=== PATIENT | female | born 1960 | race Caucasian/White ===

== ENCOUNTER → 2016-07-29 | Outpatient (CLI) | payer OTHER ==
--- NOTE | 2016-07-29 14:42 | CT ---
EXAMINATION TYPE: CT abdomen wo con DATE OF EXAM: 07/29/2016 12:16 PM COMPARISON: NONE HISTORY: 56-year-old female with ventral Incisional Hernia TECHNIQUE: Contiguous axial scanning of the abdomen without IV contrast. Coronal and sagittal reconst ructions performed. CT DLP: 606 mGycm Automated exposure control for dose reduction was used. FINDINGS: The heart is normal size without pericardial effusion. Lung bases clear without pleural effusion. There appears to be a hjfkw-[id number]-xyumepso size hiatal hernia with postsurgical changes of sleeve gastre ctomy. Noncontrast appearance liver shows a 1.1 cm vague round hypodensity segment 6 inferior right hepatic lobe inadequately characterized on this study. Cholecystectomy clips are present. There is a 2.5 cm lipid rich adrenal adenoma in the right adrenal gland and 1.3 cm lipid rich adrenal adenoma in the left adrenal gland. Suggestion of second 1.0 cm lipid rich left adrenal adenoma. Kidneys, spleen, pancreas show no gross abnormality by noncontrast CT. There is moderate to large stool within the left hemicolon. No dilated small bowel, free fluid, or free air. There is some type of colonic anastomotic staple stephie e in the right mid abdomen probably ileocolonic. No mesenteric or retroperitoneal lymphadenopathy. There is a moderate sized right paramedian mid abdominal ventral wall hernia containing omental fat. The hernia sac measures 7.0 cm wide by 6.7 cm craniocaudal. The abdominal wall defect measures 4.1 cm wide. Bones: Degenerative changes lower lumbar spine. No osseous destructive process. IMPRESSION: 1. MODERATE SIZED RIGHT PARAMEDIAN MID ABDOMINAL WALL HERNIA MEASURING 7.0 X 6.7 CM AND THE ABDOMINAL WALL DEFECT MEASURING 4.1 CM WIDE. THE HERNIA SAC CONTAINS OMENTAL FAT. 2. MODERATE TO LARGE STOOL IN THE LEFT HEMICOLON. PRIOR SURGERY INVOLVING THE RIGHT COLON. 3. STATUS POST SLEEVE GASTRECTOMY WITH A SMALL TO MODERATE-SIZED HIATAL HERNIA. 4. BILATERAL LIPID RICH ADRENAL ADENOMAS MEASURING UP TO 2.5 CM. 5. AN INDETERMINATE 1.1 CM HYPODENSE LESION INFERIOR RIGHT LIVER LOBE. PROBABLE CYST. CONSIDER 6 KAROL H FOLLOW-UP ULTRASOUND TO ASSESS FOR ANY ENLARGING LESION.
== END | disposition home or self-care (01) ==
LOC: RADCTMAIN 11:18
PROVIDERS: ATTEND Family Medicine
DX: K43.9 Ventral hernia without obstruction or gangrene (principal); K44.9 Diaphragmatic hernia without obstruction or gangrene; D35.02 Benign neoplasm of left adrenal gland; D35.01 Benign neoplasm of right adrenal gland; Z98.84 Bariatric surgery status
CPT/HCPCS: 74150

== ENCOUNTER → 2016-09-21 | Outpatient (CLI) | payer OTHER ==
[2016-09-21 13:16] LABS: ALT 37 U/L (9-52); AST 22 U/L (14-36); Alkaline Phosphatase 100 U/L (38-126); Anion Gap 13 mmol/L; Blood Urea Nitrogen 10 mg/dL (7-17); Calcium 9.9 mg/dL (8.4-10.2); Carbon Dioxide 27 mmol/L (22-30); Chloride 104 mmol/L (98-107); Cholesterol 238 mg/dL (<200); Glucose 109 mg/dL (74-99); HDL Cholesterol 66 mg/dL (40-60); Iron 108 ug/dL (37-170); Non-African American GFR(MDRD) >60 (>60 ml/min/1.73 sqM); Phosphorous 4.4 mg/dL (2.5-4.5); Potassium 4.5 mmol/L (3.5-5.1); Sodium 144 mmol/L (137-145); Total Bilirubin 0.3 mg/dL (0.2-1.3); Total Protein 7.1 g/dL (6.3-8.2); Triglycerides 216 mg/dL (<150)
[2016-09-21 13:20] LABS: Partial Thromboplastin Time 26.3 sec (22.0-30.0); Prothrombin Time 10.6 sec (9.0-12.0)
[2016-09-21 13:28] LABS: % Iron Saturation 35.4 % (20-50); Prealbumin 28 mg/dL (18-36); Total Iron Binding Capacity 305 ug/dL (265-497)
[2016-09-21 13:34] LABS: CHCM 33.6; HCT 39.7 % (34.0-46.0); HDW 2.34; HGB 13.7 gm/dL (11.4-16.0); MCH 31.9 pg (25.0-35.0); MCHC 34.4 g/dL (31.0-37.0); MCV 92.6 fL (80.0-100.0); Mean Platelet Volume 7.1; RBC 4.29 m/uL (3.80-5.40); RDW 12.4 % (11.5-15.5); WBC 4.8 k/uL (3.8-10.6)
[2016-09-21 14:22] LABS: Vitamin B12 253 pg/mL (239-931)
[2016-09-21 20:38] LABS: Hemoglobin A1C 5.3 % (4.2-6.1)
[2016-09-24 11:20] LABS: Selenium 129 mcg/L (63-160)
== END | disposition home or self-care (01) ==
LOC: LABWHC1 12:26
PROVIDERS: ATTEND Surgery Plastic and Reconstructive Surgery
DX: E21.1 Secondary hyperparathyroidism, not elsewhere classified (principal); T56.894A Toxic effect of other metals, undetermined, initial encounter; E89.1 Postprocedural hypoinsulinemia; D50.8 Other iron deficiency anemias; E44.0 Moderate protein-calorie malnutrition; E55.9 Vitamin D deficiency, unspecified; K76.9 Liver disease, unspecified
CPT/HCPCS: 36415; 80053; 80061; 82306; 82525; 82607; 82728; 82746; 83036; 83540; 83550; 83735; 83970; 84100; 84134; 84255; 84425; 84443; 84590; 84630; 85027; 85610; 85730

== ENCOUNTER → 2016-10-13 | Outpatient (CLI) | payer OTHER ==
--- NOTE | 2016-10-13 12:52 | P.STRESS ---
- Stress Test Note Stress Test Results/Findings: Exam Performed: stress test Exam Date: 10/13/16 Reason for Exam: CP Height: 5 ft 5 in Weight: 90.718 kg Protocol: JENNIFER Stage: 3 Duration of Exercise: 7:00 Resting Heart Rate: 101 Resting Blood Pressure: 131/91 Maximum Achieved Heart Rate: 163 Maximum Achieved Blood Pressure: 172/89 85% PMHR: 141 100% PMHR: 166 METS: 8.5 Technologist Comment: Stress Test Results/Findings: Resting EKG shows a normal sinus rhythm with a normal TN interval and QRS duration and normal ST-T waves. No ST segment depression suggestive ischemia is noted. Patient did not complain of any anginal pain during the test. No dysrhythmias were noted. Final impression. The stress EKG is not suggestive ischemi Patient did not complain of any anginal pain during the test. No dysrhythmias were noted.
--- NOTE | 2016-10-13 16:50 | EST ---
Stress Test Results/Findings: Exam Performed: stress test Exam Date: 10/13/16 Reason for Exam: CP Height: 5 ft 5 in Weight: 90.718 kg Protocol: JENNIFER Stage: 3 Duration of Exercise: 7:00 Resting Heart Rate: 101 Resting Blood Pressure: 131/91 Maximum Achieved Heart Rate: 163 Maximum Achieved Blood Pressure: 172/89 85% PMHR: 141 100% PMHR: 166 METS: 8.5 Technologist Comment: Stress Test Results/Findings: Resting EKG shows a normal sinus rhythm with a normal GA interval and QRS duration and normal ST-T waves. No ST segment depression suggestive ischemia is noted. Patient did not complain of any anginal pain during the test. No dysrhythmias were noted. Final impression. The stress EKG is not suggestive ischemi Patient did not complain of any anginal pain during the test. No dysrhythmias were noted. MTDD
== END | disposition home or self-care (01) ==
LOC: RADNMMAIN 10:39
PROVIDERS: ATTEND Family Medicine
DX: R00.2 Palpitations (principal)
CPT/HCPCS: 93017

== ENCOUNTER 2016-10-19 08:45 | Day surgery (SDC) | payer OTHER ==
[2016-10-17 14:11] VITALS: BMI 34.2
--- NOTE | 2016-10-19 08:36 | P.GSHP ---
History of Present Illness H&P Date: 10/19/16 CHIEF COMPLAINT: GERD HISTORY OF PRESENT ILLNESS: The patient is a 56-year-old female who presents reports gastroesophageal reflux disease. Upper endoscopy was offered for further evaluation and management. PAST MEDICAL HISTORY: Please see list. PAST SURGICAL HISTORY: Please see list. MEDICATIONS: Please see list. ALLERGIES: Please see list. SOCIAL HISTORY: No illicit drug use FAMILY HISTORY: No reports of Crohn disease or ulcerative colitis. REVIEW OF ORGAN SYSTEMS: CONSTITUTIONAL: No reports of fevers or chills. GI: Denies any blood in stools or constipation. PHYSICAL EXAM: VITAL SIGNS: Stable GENERAL: Well-developed and pleasant in no acute distress. HEENT: No scleral icterus. Extraocular movements grossly intact. Moist buccal mucosa. NECK: Supple without lymphadenopathy. CHEST: Unlabored respirations. Equal bilateral excursions. CARDIOVASCULAR: Regular rate and rhythm. Distal 2+ pulses. ABDOMEN: Soft, nondistended. MUSCULOSKELETAL: No clubbing, cyanosis, or edema. ASSESSMENT: 1. Gastroesophageal reflux disease PLAN: 1. Recommend proceeding with an upper endoscopy with possible dilatation. Past Medical History Additional Past Medical History / Comment(s): hx of intestinal problems since . chronic constipation. hiatal hernia History of Any Multi-Drug Resistant Organisms: None Reported Past Surgical History: Adenoidectomy, Appendectomy, Bariatric Surgery, Bowel Resection, Cholecystectomy, Tonsillectomy Additional Past Surgical History / Comment(s): colonoscopy. egd. GASTRIC SLEEVE Past Anesthesia/Blood Transfusion Reactions: Motion Sickness Smoking Status: Former smoker - Past Family History Father Family Medical History: Cancer Sister(s) Family Medical History: Cancer Medications and Allergies Home Medications Medication Instructions Recorded Confirmed Type ALPRAZolam [Xanax] 0.25 mg PO BID PRN 10/17/16 10/17/16 History Dicyclomine [Bentyl] 10 mg PO TID PRN 10/17/16 10/17/16 History Doxylamine Succinate [Unisom] 25 mg PO HS 10/17/16 10/17/16 History Lubiprostone [Amitiza] 24 mcg PO HS 10/17/16 10/17/16 History traMADol HCL [Ultram] 150 mg PO DAILY PRN 10/17/16 10/17/16 History Allergies Allergy/AdvReac Type Severity Reaction Status Date / Time morphine AdvReac Nausea & Verified 10/17/16 14:07 Vomiting
[~2016-10-19 08:45] MED LIST: LACTATED RINGERS 1,000 ML IV SCH; LIDOCAINE 1% 20 ML VIAL (10MG/ML) FOR IV START INTRADERMA PRN
[2016-10-19 10:03] VITALS: RESP 16; TEMP 97.1
[2016-10-19] MEDS ORDERED: LIDOCAINE 1% INJ 10MG/ML (20 ML MDV) ONE (10:38)
[2016-10-19] MEDS ORDERED: GLYCOPYRROLATE 0.2 MG/ML 2 ML VIAL ONE (10:38)
[2016-10-19] MEDS ORDERED: PROPOFOL 10 MG/ML 20 ML VIAL IV ONE (10:38)
--- NOTE | 2016-10-19 11:02 | P.PCN ---
Date of Procedure: 10/19/16 Preoperative Diagnosis: Postoperative Diagnosis: Procedure(s) Performed: Implants: Indications for Procedure: Operative Findings: Description of Procedure: PREOPERATIVE DIAGNOSIS: Status post sleeve gastrectomy. Gastroesophageal reflux disease. Epigastric abdominal pain. POSTOPERATIVE DIAGNOSIS: Status post sleeve gastrectomy. Gastroesophageal reflux disease. Epigastric abdominal pain. Diaphragmatic hiatal hernia without obstruction. Chronic superficial gastritis. OPERATION: Esophagogastroduodenoscopy with cold forceps biopsies along the antrum. SURGEON: Angélica Shrestha MD ANESTHESIA: MAC. INDICATIONS: The patient is a 56-year-old female who presents with a history of sleeve gastrectomy with abdominal pain. She is over 8 years out from her bariatric procedure. Benefits and risks of the procedure were described. Informed consent was obtained. DESCRIPTION: The patient was brought into the endoscopy suite and laid in the left lateral decubitus position. An Olympus gastroscope was passed along the posterior oropharynx down to the distal esophagus where the squamocolumnar junction was at 35 centimeters from the incisors remarkable for chronic erosive esophagitis, LA grade A without ulceration. The stomach was entered where she had a 3-cm hiatal hernia with a diaphragmatic hiatus found at 38 cm. She also had rotation of her sleeve with proximal dilation. She had acute narrowing along the angularis incisura. The scope had to be rotated to enter the antrum. The sleeve reservoir allowed retroflexion of the scope to view the lower esophageal valve. Chronic gastritis albeit mild was found along the antrum with cold biopsies obtained. The first through third portion of the duodenum was examined and unremarkable. The stomach was desufflated. The patient tolerated the procedure well. FINDINGS: No acute ulceration found along her sleeve. Corkscrewing sleeve gastrectomy. Squamocolumnar junction at 35 cm from the incisors. Diaphragmatic hiatus at 38 cm. Gastric reservoir with prior history of sleeve gastrectomy allowing easy retroflexion of the gastroscope to view the lower esophageal valve. Hiatal hernia 3 cm, fixed. LA grade A erosive esophagitis. No active duodenitis. Chronic gastritis. RECOMMENDATIONS: Upper endoscopy as needed. May benefit from antireflux operation. Continue with current therapy. Plan - Discharge Summary New Discharge Prescriptions: No Action traMADol HCL [Ultram] 150 mg PO DAILY PRN PRN Reason: Pain Doxylamine Succinate [Unisom] 25 mg PO HS ALPRAZolam [Xanax] 0.25 mg PO BID PRN PRN Reason: Anxiety Lubiprostone [Amitiza] 24 mcg PO HS Dicyclomine [Bentyl] 10 mg PO TID PRN PRN Reason: Spasms Discharge Medication List ALPRAZolam [Xanax] 0.25 mg PO BID PRN 10/17/16 [History] Dicyclomine [Bentyl] 10 mg PO TID PRN 10/17/16 [History] Doxylamine Succinate [Unisom] 25 mg PO HS 10/17/16 [History] Lubiprostone [Amitiza] 24 mcg PO HS 10/17/16 [History] traMADol HCL [Ultram] 150 mg PO DAILY PRN 10/17/16 [History] Follow up Appointment(s)/Referral(s): Angélica Shrestha MD [STAFF PHYSICIAN] - 11/01/16 Patient Instructions/Handouts: Hiatal Hernia (GEN) Discharge Disposition: HOME SELF-CARE
[2016-10-19 11:17] VITALS: BP 131/81; PULSE 77
== END 2016-10-19 11:50 | disposition home or self-care (01) ==
LOC: ORWHC2ENDO 08:45
PROVIDERS: ATTEND Surgery Plastic and Reconstructive Surgery
DX: K29.50 Unspecified chronic gastritis without bleeding (principal); K44.9 Diaphragmatic hernia without obstruction or gangrene; K59.09 Other constipation; Z87.891 Personal history of nicotine dependence; Z98.84 Bariatric surgery status; E66.01 Morbid (severe) obesity due to excess calories; Z68.34 Body mass index [BMI] 34.0-34.9, adult; Z79.899 Other long term (current) drug therapy; Z88.5 Allergy status to narcotic agent
CPT/HCPCS: 43239; 88305; 88342

== ENCOUNTER → 2019-09-18 | Outpatient (CLI) | payer OTHER ==
--- NOTE | 2019-09-19 07:41 | CT ---
EXAMINATION TYPE: CT abdomen pelvis w con DATE OF EXAM: 09/18/2019 COMPARISON: 07/29/2016 HISTORY: Abdominal pain. CT DLP: 954.1 mGycm CONTRAST: CT scan of the abdomen and pelvis is performed with Oral Contrast and with IV Contrast, patient injec easton with 100 mL of Isovue 300. FINDINGS: LUNG BASES-: No visible nodule. No infiltrate. Small fixed hiatal hernia noted. LIVER/GB: The gallbladder is surgically absent. 1 cm lesion posterior segment right hepatic lobe is nonspecific and could reflect a small cyst or hemangioma. Biliary tree is of normal caliber. PANCREAS: No inflammation. No distinct mass. SPLEEN: No splenic enlargement. No lesion seen. ADRENALS: No nodule. Adrenal glandular thickening compatible with hyperplasia and/or underlying rashawn omatous change. KIDNEYS/BLADDER: No hydronephrosis. No nephrolithiasis. No distinct renal mass. Urinary bladder g rossly unremarkable. BOWEL: Normal appendix. Postsurgical changes of gastric sleeve. Normal bowel caliber. No inflammati on. GENITAL ORGANS: No gross abnormality. LYMPH NODES: No greater than 1cm abdominal or pelvic lymph nodes are appreciated. AORTA: No significant abnormality. OSSEOUS STRUCTURES: No significant abnormality is seen. OTHER: Fat-containing ventral hernia noted to the right of midline. IMPRESSION: 1. No evidence for diverticulitis. No acute intra-abdominal process seen. 2. Fat-containing ventral hernia. 3. Nonspecific hepatic lesion appears unchanged relative to prior examination.
== END | disposition home or self-care (01) ==
LOC: RADCTMAIN 15:48
PROVIDERS: ATTEND Surgery Plastic and Reconstructive Surgery
DX: K43.9 Ventral hernia without obstruction or gangrene (principal); K76.89 Other specified diseases of liver
CPT/HCPCS: 74177; Q9967 ×2

== ENCOUNTER 2019-11-25 07:32 | Day surgery (SDC) | payer OTHER ==
[2019-11-21 08:33] VITALS: BMI 31.2
--- NOTE | 2019-11-25 04:43 | P.GSHP ---
History of Present Illness H&P Date: 11/25/19 CHIEF COMPLAINT: Incisional hernia. HISTORY OF PRESENT ILLNESS: The patient is a 59-year-old female who presents with a history of swelling along the mid abdomen. Findings are consistent with incisional hernia. Now she presents for further evaluation and management. PAST MEDICAL HISTORY: Please see list. PAST SURGICAL HISTORY: Please see list. MEDICATIONS: Please see list. ALLERGIES: Please see list. SOCIAL HISTORY: No illicit drug use FAMILY HISTORY: No reports of Crohn disease or ulcerative colitis. REVIEW OF ORGAN SYSTEMS: CONSTITUTIONAL: No reports of fevers or chills. PHYSICAL EXAM: VITAL SIGNS: Stable GENERAL: Well-developed pleasant female in no acute distress. HEENT: No scleral icterus. Extraocular movements grossly intact. Moist buccal mucosa. NECK: Supple without lymphadenopathy. CHEST: Unlabored respirations. Equal bilateral excursions. CARDIOVASCULAR: Regular rate and rhythm. Distal 2+ pulses. ABDOMEN: Soft, nondistended. Tender along the mid abdomen. MUSCULOSKELETAL: No clubbing, cyanosis, or edema. ASSESSMENT: 1. Incisional ventral hernia. PLAN: 1. Recommend proceeding with robotic ventral hernia repair with mesh. 2. Benefits and risks of surgical intervention was discussed including possibility of open technique. 3. DVT prophylaxis. 4. Antibiotic prophylaxis. Past Medical History Additional Past Medical History / Comment(s): states hx of elevated heart rate, states "abdominal adhesions" History of Any Multi-Drug Resistant Organisms: None Reported Past Surgical History: Appendectomy, Bariatric Surgery, Bowel Resection, Cholecystectomy, Hysterectomy, Tonsillectomy Additional Past Surgical History / Comment(s): hx of gastric sleeve Past Anesthesia/Blood Transfusion Reactions: No Reported Reaction Smoking Status: Current every day smoker - Past Family History Mother Family Medical History: Cancer Additional Family Medical History / Comment(s): skin Father Family Medical History: Cancer Additional Family Medical History / Comment(s): skin Medications and Allergies Home Medications Medication Instructions Recorded Confirmed Type ALPRAZolam [Xanax] 0.25 mg PO BID PRN 10/17/16 11/21/19 History Acetaminophen Tab [Tylenol] 650 mg PO Q4H PRN 11/21/19 11/21/19 History Metoprolol Tartrate [Lopressor] 12.5 mg PO BID 11/21/19 11/21/19 History Sertraline [Zoloft] 25 mg PO DAILY 11/21/19 11/21/19 History Allergies Allergy/AdvReac Type Severity Reaction Status Date / Time morphine AdvReac Nausea & Verified 11/21/19 08:26 Vomiting
[~2019-11-25 07:32] MED LIST changes: +ACETAMINOPHEN TAB 500 MG TAB PO STA; +DEXAMETHASONE SOD PHOSPHATE 10 MG/ML 1 ML VIAL IV ONE; +GABAPENTIN 300 MG CAP PO STA; +HEPARIN SODIUM,PORCINE 5,000 UNIT/ML 1 ML VIAL SQ ONE; +KETOROLAC 15 MG/ML 1 ML VIAL IVP PRN; -LACTATED RINGERS 1,000 ML IV SCH; -LIDOCAINE 1% 20 ML VIAL (10MG/ML) FOR IV START INTRADERMA PRN; +ONDANSETRON 4 MG/2 ML VIAL IVP ONE; +SCOPOLAMINE 1.5MG/72HR PATCH TRANSDERM STA
[2019-11-25] MEDS: LACTATED RINGERS 1,000 ML IV SCH ×2 (08:11→09:34)
[2019-11-25] MEDS ORDERED: LIDOCAINE 1% (10MG/ML) FOR IV START INTRADERMA ONE (08:11)
[2019-11-25] MEDS ORDERED: fentaNYL (PF) 50 MCG/ML 2 ML AMP IV ONE (08:46)
[2019-11-25] MEDS ORDERED: MIDAZOLAM 2 MG/2 ML VIAL IV ONE (08:46)
--- NOTE | 2019-11-25 09:12 | P.ANPRN ---
Procedure Note - Anesthesia - Nerve Block Performed Bilateral Rectus Abdominis Single Time Out Performed: Yes Date of Procedure: 11/25/19 Procedure Start Time: 08:46 Procedure Stop Time: 08:58 Location of Patient: PreOp Indication: Requested by Surgeon Specifically requested for management of pain by DrUmm: Angélica Shrestha Sedation Type: Sedate with meaningful contact maintained Preparation: Sterile Prep Position: Supine Needle Types: Pajunk Needle Gauge: 21 Ultrasound used to visualize needle placement: Yes Ultrasound used to observe medication spread: Yes Injectate: 0.5% Ropivacaine (see comment for volume) (15 ml per trish plus dexamethasone 4 mg) Blood Aspirated: No Pain Paresthesia on Injection Noted: No Resistance on Injection: Normal Image Stored and Saved: Yes Events: Uneventful and Well Tolerated
[2019-11-25] MEDS ORDERED: ROPIVACAINE 5 MG/ML 30 ML VIAL ONE (09:30)
[2019-11-25] MEDS ORDERED: DEXAMETHASONE SOD PHOSPHATE 4 MG/ML 1 ML VIAL ONE (09:30)
[2019-11-25] MEDS ORDERED: GLYCOPYRROLATE 0.2 MG/ML 2 ML VIAL ONE (09:30)
[2019-11-25] MEDS ORDERED: fentaNYL (PF) 50 MCG/ML 2 ML AMP ONE (09:30)
[2019-11-25] MEDS ORDERED: NEOSTIGMINE 1 MG/ML 10 ML VIAL ONE (09:30)
[2019-11-25] MEDS ORDERED: SUCCINYLCHOLINE CHLORIDE 100 MG/5 ML SYR IV ONE (09:30)
[2019-11-25] MEDS ORDERED: ROCURONIUM BROMIDE 10 MG/ML 5 ML VIAL IV ONE (09:30)
[2019-11-25] MEDS ORDERED: PROPOFOL 10 MG/ML 20 ML VIAL IV ONE (09:30)
[2019-11-25] MEDS ORDERED: LIDOCAINE 1% INJ 10MG/ML (20 ML MDV) ONE (09:30)
[2019-11-25] MEDS ORDERED: LIDOCAINE 1%-EPI 1:100,000 20 ML VIAL SQ ONE (09:58)
[2019-11-25] MEDS ORDERED: LACTATED RINGERS 1,000 ML IV ONE (10:46)
[2019-11-25 12:09] VITALS: TEMP 97.6
[2019-11-25] MEDS: HYDROmorphone 0.5 MG/0.5 ML SYRINGE IVP PRN ×4 (12:14→12:35)
--- NOTE | 2019-11-25 12:38 | P.OP ---
Date of Procedure: 11/25/19 Description of Procedure: SURGEON: ANGÉLICA SHRESTHA MD PREOPERATIVE DIAGNOSES: 1. Incisional hernia, upper abdomen 2. Morbid obesity due to excess calories, BMI 31.5 3. Status post gastric bypass 4. Status post colectomy 5. History of peritoneal dictation 6. Generalized anxiety disorder 7. Depressive disorder 8. Generalized abdominal pain POSTOPERATIVE DIAGNOSES: 1. Incisional hernia, upper abdomen, 4 cm 2. Morbid obesity due to excess calories, BMI 31.5 3. Status post gastric bypass 4. Status post colectomy 5. History of peritoneal dictation 6. Generalized anxiety disorder 7. Depressive disorder 8. Severe intra-abdominal adhesions with intraloop adhesions 9. Generalized abdominal pain OPERATION: 1. Robotic-assisted da Jacqueline Xi laparoscopic extensive lysis of adhesions over 1.5 hours 2. Robotic-assisted da Jacqueline Xi laparoscopic repair of 4 cm x 5 cm incisional hernia without mesh Anesthesia: GETA, local, abdominal wall block Estimated Blood Loss (ml): 5 Pathology: none sent Condition: stable Disposition: same day COMPLICATIONS: None. Operative Findings: 1. Severe intra-abdominal adhesions including intraloop adhesions requiring extensive lysis of adhesions over 1.5 hrs. 2. Fascial defect 4 x 5 cm epigastrium oversewn using #1 VLOC, nonabsorbable 3. Due to the severe adhesions, mesh repair avoided 4. Evidence of right hemicolectomy 5. Highly redundant hepatic flexure 6. High redundant sigmoid colon 7. Dense retroperitoneal adhesive band involving the common channel to right lower quadrant light, intraloop adhesions 8. Retrocolic, retrogastric gastric bypass INDICATIONS: The patient is a 59-year-old female who presents with persistent generalized abdominal pain, history of gastric bypass including incisional hernia of the epigastrium from multiple abdominal surgeries. Surgical intervention with laparoscopic versus robotic and open techniques were reviewed. Placement of mesh was also reviewed. Benefits and risks were thoroughly described. Informed consent was obtained. DESCRIPTION OF PROCEDURE: The patient was brought into the operating room and laid in supine position. After general induction, the abdomen had been prepped and draped in standard sterile fashion. Ioban draping was also placed. Prior to incision, a timeout protocol was confirmed with surgical team regarding the patient's name including procedures to be performed. The robot was primed prior to the procedure. Initial incision was made with a #11 blade along the left upper quadrant. A 0 degree 5 mm laparoscopic trocar entry was performed. Diagnostic laparoscopy demonstrated moderate peritoneal adhesions involving upper abdomen including right upper quadrant as well as defect of the epigastrium from prior multiple abdominal surgeries. Three robotic 8-mm ports were placed along the left lateral abdominal wall as the 5-mm port of the left upper quadrant was exchanged. A separate 12 mm trochar was placed on the right upper quadrant for placement of sutures. Placements of the ports were 15 cm from the target anatomy and approximately 10 cm apart. The da Jacqueline Xi robot was previously primed, prepped and draped then docked along the left side of the patient. I then sat at the robot Da Jacqueline Xi console where working arms of the robot in cluding Bovie cautery connected to robotic scissors, needle driver merchandiser, vessel sealer and graspers were exchanged by the project administrative assistant. She had very dense adhesions of the epigastrium and right upper quadrant involving the greater omentum and transverse colon addressed with a combination of sharp and blunt dissection. Complete lysis of adhesions occurred for 1.5 hrs including investigating the small bowel from the ileocolic anastomosis and dividing intraloop adhesions causing an intermittent functional bowel obstruction. The fascial defect of 4 x 5 cm of the upper abdomen was identified. The hernia defect was oversewn using nonabsorbable #1 VLOC with fascial imbrication x 4 to close and reinforce the defect. With her pre-existing severe abdominal adhesions, mesh placement was avoided. Rest of the investigation of the abdomen demonstrated evidence of a right hemicolectomy with highly redundant hepatic flexure including sigmoid colon. Dense retroperitoneal adhesive band involving the common channel to right lower quadrant light, intraloop adhesions were taken down. A retrocolic, retrogastric gastric bypass configuration was confirmed. Endoscopic images were obtained. All instruments and pneumoperitoneum were evacuated from the abdominal cavity. The da Jacqueline Xi robot was undocked from the patient. I re-scrubbed into the case for closure of incisions. The incisions were reapproximated using 4-0 Monocryl in an interrupted subcuticular fashion. Liquid glue was applied to the skin after cleansing the skin with normal saline and dilute hydrogen peroxide. An abdominal binder was placed. At the end of the procedure, needle, sponge, and instrument count had been verified correct by regional vice president surgical sales. The patient was taken to the postanesthesia care unit in stable condition. Plan - Discharge Summary Discharge Rx Participant: Yes New Discharge Prescriptions: New Acetaminophen Tab [Tylenol Tab] 1,000 mg PO Q6HR PRN #30 tablet PRN Reason: Pain Naproxen [Naprosyn] 250 mg PO TID PRN #30 tab PRN Reason: Pain Continue ALPRAZolam [Xanax] 0.25 mg PO BID PRN PRN Reason: Anxiety Sertraline [Zoloft] 25 mg PO DAILY Metoprolol Tartrate [Lopressor] 12.5 mg PO BID Discontinued Acetaminophen Tab [Tylenol] 650 mg PO Q4H PRN PRN Reason: Pain Discharge Medication List ALPRAZolam [Xanax] 0.25 mg PO BID PRN 10/17/16 [History] Metoprolol Tartrate [Lopressor] 12.5 mg PO BID 11/21/19 [History] Sertraline [Zoloft] 25 mg PO DAILY 11/21/19 [History] Acetaminophen Tab [Tylenol Tab] 1,000 mg PO Q6HR PRN #30 tablet 11/25/19 [Rx] Naproxen [Naprosyn] 250 mg PO TID PRN #30 tab 11/25/19 [Rx] Follow up Appointment(s)/Referral(s): Angélica Shrestha MD [STAFF PHYSICIAN] - 11/26/19 Patient Instructions/Handouts: Laparoscopic Herniorrhaphy (DC), Abdominal Binder (DC), *[facility] - Managing Your Pain After Surgery Without Opioids Activity/Diet/Wound Care/Special Instructions: Wear abdominal binder at all times No lifting over 4 pounds in 4 weeks until December 24. July shower. No bath tub soaks for two weeks until Dec 08. Diet as tolerated. No driving while on narcotics. Use Tylenol and ibuprofen/Aleve scheduled for the next 24-48 hours for best pain relief. Use ice along incisions for the today to prevent swelling. Discharge Disposition: HOME SELF-CARE
[2019-11-25] MEDS ORDERED: MEPERIDINE 50 MG/ML SYRINGE IVP ONE (12:54)
[2019-11-25 13:48] VITALS: PULSE 63
[2019-11-25 14:15] VITALS: BP 102/63; RESP 20
[2019-11-25] MEDS ORDERED: ACETAMINOPHEN TAB 500 MG TAB PO ONE ×2 (14:15→14:16)
[2019-11-25] MEDS ORDERED: ACETAMINOPHEN TAB 500 MG TAB ONE (14:18)
== END 2019-11-25 14:47 | disposition home or self-care (01) ==
LOC: OR 07:32
PROVIDERS: ATTEND Surgery Plastic and Reconstructive Surgery
DX: K43.2 Incisional hernia without obstruction or gangrene (principal); K66.0 Peritoneal adhesions (postprocedural) (postinfection); Q43.8 Other specified congenital malformations of intestine; E66.01 Morbid (severe) obesity due to excess calories; F32.9 Major depressive disorder, single episode, unspecified; F41.1 Generalized anxiety disorder; F17.200 Nicotine dependence, unspecified, uncomplicated; Z88.5 Allergy status to narcotic agent; Z86.79 Personal history of other diseases of the circulatory system; Z90.49 Acquired absence of other specified parts of digestive tract; Z98.84 Bariatric surgery status; Z90.710 Acquired absence of both cervix and uterus; Z90.89 Acquired absence of other organs; Z79.899 Other long term (current) drug therapy; Z68.31 Body mass index [BMI] 31.0-31.9, adult; Z80.8 Family history of malignant neoplasm of other organs or systems
CPT/HCPCS: 49329; 49654; S2900; 64488

== ENCOUNTER → 2020-01-15 | Outpatient (CLI) | payer OTHER ==
[2020-01-15 13:34] VITALS: BP 121/71; PULSE 78; RESP 16; TEMP 98.2; BMI 32.9
--- NOTE | 2020-01-15 14:00 | P.PN ---
Subjective Progress Note Date: 01/15/20 DATE OF SERVICE: 01/15/2020 REASON FOR CONSULTATION: Morbid obesity HISTORY OF PRESENT ILLNESS: Katheryn Calderon is a 59-year-old female with past history of sleeve gastrectomy with complications. She comes in with epigastric pain. She is smoking. She had a sleeve gastrectomy done by Dr Rod. Her highest was 255 pounds. Her lowest weight was 162 pounds. She gained 20 pound in 3 to 4 months. She comes in with gastroesophageal reflux disease. She is seeking correction of her reflux disease. At height of 5 feet 5 inches, her ideal body weight is 149 pounds. Her highest weight is 255 pounds, BMI 42.5. She comes in 198 pounds. Her body mass index is 32.9. She is 49 pounds overweight. PAST MEDICAL HISTORY: 1. Morbid obesity due to excess calories 2. Body mass index, 42.5 initial 3. Hypertensive heart disease 4. Depressive disorder 5. Anxiety disorder 6. Chronic pain syndrome PAST SURGICAL HISTORY: 1. Appendectomy 2. Sleeve gastrectomy 3. Right hemicolectomy 4. Cholecystectomy 5. Hysterectomy 6. Tonsillectomy 7. Ventral hernia repair HOME MEDICATIONS: Home Medications Medication Instructions Recorded Confirmed yMetoprolol Tartrate [Lopressor] 12.5 mg PO BID 11/21/19 03/20/20 ALPRAZolam [Xanax] 0.5 mg PO DAILY PRN 01/27/20 03/20/20 Cyanocobalamin [Vitamin B-12] 500 mcg PO DAILY 01/27/20 03/20/20 DULoxetine HCL [Cymbalta] 60 mg PO DAILY 01/27/20 03/20/20 Etodolac [Lodine] 200 mg PO BID 01/27/20 03/20/20 Turmeric Root Extract [Turmeric] 500 mg PO BID 01/27/20 03/20/20 Vitamin D3 5,000 units PO DAILY 01/27/20 03/20/20 ALLERGIES: Allergies Allergy/AdvReac Type Severity Reaction Status Date / Time gabapentin AdvReac Chest Verified 03/20/20 15:28 Pain,joint pain morphine AdvReac Nausea & Verified 03/20/20 15:28 Vomiting SOCIAL HISTORY: Past tobacco use. FAMILY HISTORY: No family history of ulcerative colitis disease or Crohn's disease. Family history of morbid obesity. No lupus in the family. No reports of stomach or esophageal cancer. REVIEW OF ORGAN SYSTEMS: CONSTITUTIONAL: At height of 5 feet 5 inches, her ideal body weight is 149 pounds. Her highest weight is 255 pounds, BMI 42.5. She comes in 198 pounds. Her body mass index is 32.9. She is 49 pounds overweight. HEENT: Denies any active troubles with vision or hearing. ENDOCRINE: No diabetes. No hypothyroidism. CARDIOVASCULAR: Denies past reports of palpitations or heart attacks or chest pain. RESPIRATORY: Denies daytime somnolence. Denies asthma. GASTROINTESTINAL: Denies any bright red blood per rectum. No diarrhea. No constipation. MUSCULOSKELETAL: Has lower back pain and joint pain. Has osteoarthritis of the knees. NEURO: No headaches. No seizure disorders. PSYCH: Has depression. No suicidal ideation. Has anxiety. RHEUMATOLOGIC: No lupus. No rheumatoid arthritis. HEMATOLOGIC: Denies any abnormal bleeding or bruising. No personal history of DVTs. SKIN: No rash. No skin cancer. PHYSICAL EXAM: VITAL SIGNS: Height 5 foot 5 inches, weight 198 pounds. BMI 32.9 Vital Signs Temp 98.2 F 01/15/20 13:31 Pulse 78 01/15/20 13:31 Resp 16 01/15/20 13:31 BP 121/71 01/15/20 13:31 Pulse Ox GENERAL: Well-developed in no acute distress. HEENT: No scleral icterus. Extraocular movements grossly intact. Hears conversational speech. No nasal drainage. NECK: Supple without lymphadenopathy. CHEST: Nonlabored respirations with equal bilateral excursions. CARDIOVASCULAR: Regular rate and regular rhythm. Distal 2+ pulses. ABDOMEN: Obese, soft, nontender, nondistended. MUSCULOSKELETAL: No clubbing, cyanosis. NEURO: No focal or lateralizing signs. Cranial nerves 2 through 12 grossly within normal limits. PSYCH: Appropriate affect. Alert and oriented to person, place and time. SKIN: Good skin turgor. Well perfused. ASSESSMENT: 1. Morbid obesity due to excess calories 2. Body mass index, 42.5 initial 3. Hypertensive heart disease 4. Depressive disorder 5. Anxiety disorder 6. Chronic pain syndrome 7. Tobacco abuse 8. Dietary surveillance PLAN: 1. She comes in with epigastric pain. Recommend CT abdomen and pelvis for new- onset abdominal pain. 2. Strict tobacco cessation and counseling advised. Objective - Vital Signs Vital signs: Vital Signs Temp 98.2 F 01/15/20 13:31 Pulse 78 01/15/20 13:31 Resp 16 01/15/20 13:31 BP 121/71 01/15/20 13:31 Pulse Ox Intake & Output 01/14/20 01/15/20 01/15/20 18:59 06:59 18:59 Weight 89.811 kg
== END | disposition home or self-care (01) ==
LOC: BARWHC3 13:00
PROVIDERS: ATTEND Surgery Plastic and Reconstructive Surgery
DX: Z48.815 Encounter for surgical aftercare following surgery on the digestive system (principal); E66.01 Morbid (severe) obesity due to excess calories; I11.9 Hypertensive heart disease without heart failure; F41.8 Other specified anxiety disorders; G89.4 Chronic pain syndrome; Z87.891 Personal history of nicotine dependence; Z68.41 Body mass index [BMI] 40.0-44.9, adult; Z71.3 Dietary counseling and surveillance; Z98.84 Bariatric surgery status; Z88.5 Allergy status to narcotic agent; Z88.8 Allergy status to other drugs, medicaments and biological substances; Z79.899 Other long term (current) drug therapy
CPT/HCPCS: 99211

== ENCOUNTER → 2020-01-23 | Outpatient (CLI) | payer OTHER ==
--- NOTE | 2020-01-24 09:50 | CT ---
EXAMINATION TYPE: CT abdomen pelvis w con DATE OF EXAM: 01/23/2020 COMPARISON: CT 09/18/2019 HISTORY: Generalized abdominal pain post abdominal surgery to remove adhesions in 2019. CT DLP: 1348 mGycm Automated exposure control for dose reduction was used. TECHNIQUE: Helical acquisition of images from the lung bases through the pelvis have been completed. CONTRAST: Performed without Oral Contrast and with IV Contrast, patient injected with 100ml mL of Isovue 300. FINDINGS: There is a hiatal hernia present. Postop changes are noted status post gastric sleeve. Vent ral hernia repair has been performed, some local scar or inflammatory changes present. LUNG BASES: No significant abnormality is appreciated. AORTA: No significant abnormality is appreciated. LIVER/GB: No significant interval change is appreciated, low dense focus within the right lobe of the liver is stable. Patient is post cholecystectomy. PANCREAS: No significant abnormality is seen. SPLEEN: No significant abnormality is seen. ADRENALS: No significant change is seen low dense focus within the left adrenal gland measures 15 mm, low dense focus within the right adrenal gland measures 2.7 cm, likely adenoma,, possible hyperplasi a. KIDNEYS: No significant abnormality is seen. REPRODUCTIVE ORGANS: Patient is post hysterectomy, suspect a left ovary is in place, right ovary not seen with certainty BOWEL: Postop changes to the bowel are noted, some gas distended loops of colon are present with solomon e retained stool, no evident obstruction. Duodenal diverticulum is noted at the head of the pancreas level in the uncinate process. FREE AIR: No Free Air visible. ASCITES: None visible. PELVIC ADENOPATHY: None visualized. RETROPERITONEAL ADENOPATHY: No Retroperitoneal Adenopathy visible. URINARY BLADDER: No significant abnormality is seen. OSSEOUS STRUCTURES: No significant abnormality is seen. IMPRESSION: POSTOP CHANGES AND ADDITIONAL FINDINGS ABOVE. NO ACUTE ABNORMALITIES EVIDENT.
== END | disposition home or self-care (01) ==
LOC: RADCTMAIN 17:28
PROVIDERS: ATTEND Surgery Plastic and Reconstructive Surgery
DX: K44.9 Diaphragmatic hernia without obstruction or gangrene (principal); K57.10 Diverticulosis of small intestine without perforation or abscess without bleeding; K59.00 Constipation, unspecified; K63.89 Other specified diseases of intestine; Z98.84 Bariatric surgery status; Z90.49 Acquired absence of other specified parts of digestive tract; Z90.710 Acquired absence of both cervix and uterus
CPT/HCPCS: 74177; Q9967

== ENCOUNTER → 2020-01-23 | Outpatient (CLI) | payer OTHER ==
[2020-01-23 16:48] LABS: HCT 41.7 % (34.0-46.0); HGB 13.4 gm/dL (11.4-16.0); MCHC 32.1 g/dL (31.0-37.0); MCV 96.7 fL (80.0-100.0); Platelet Count 272 k/uL (150-450); RBC 4.32 m/uL (3.80-5.40); RDW 12.9 % (11.5-15.5); WBC 6.1 k/uL (3.8-10.6)
[2020-01-24 01:48] LABS: Ferritin 22.1 ng/mL (10.0-291.0)
[2020-01-24 02:21] LABS: % Iron Saturation 17.61 (12.00-45.00); African American GFR (CKD) 111.5 (60.0-200.0); Albumin 4.7 g/dL (3.80-4.90); Albumin/Globulin Ratio 2.35 (1.60-3.17); Anion Gap 9.1 mmol/L (4.00-12.00); BUN/Creat Ratio 22.86 Ratio (12.00-20.00); Calcium 9.5 mg/dL (8.7-10.3); Carbon Dioxide 27.9 mmol/L (21.6-31.8); Chol/HDL Ratio 4.29; Folate, Serum 10.2 ng/mL; Magnesium 2.2 mg/dL (1.5-2.4); Non-African American GFR(CKD) 96.2 (60.0-200.0); Phosphorus 4.3 mg/dL (2.4-5.1); Potassium 4.4 mmol/L (3.5-5.5); Total Bilirubin 0.2 mg/dL (0.3-1.2); Total Protein 6.7 g/dL (6.2-8.2)
[2020-01-24 04:34] LABS: Hemoglobin A1C 5.3 % (4.0-6.0)
[2020-01-24 04:52] LABS: INR 0.94 (0.90-1.11); Partial Thromboplastin Time 27.7 sec (23.5-31.0); Prothrombin Time 10.2 sec (9.9-11.9)
[2020-01-24 14:34] LABS: Zinc, Serum 50 ug/dL (60-130)
== END | disposition home or self-care (01) ==
LOC: LABWHC1 16:12
PROVIDERS: ATTEND Surgery Plastic and Reconstructive Surgery
DX: E66.01 Morbid (severe) obesity due to excess calories (principal); E89.1 Postprocedural hypoinsulinemia; D50.8 Other iron deficiency anemias; K90.89 Other intestinal malabsorption; E55.9 Vitamin D deficiency, unspecified; K74.1 Hepatic sclerosis; N19 Unspecified kidney failure; K50.90 Crohn's disease, unspecified, without complications
CPT/HCPCS: 36415; 80053; 80061; 82306; 82525; 82607; 82728; 82746; 83036; 83540; 83550; 83721; 83735; 83970; 84100; 84134; 84255; 84425; 84443; 84590; 84630; 85027; 85610; 85730

== ENCOUNTER → 2020-01-27 | Outpatient (CLI) | payer OTHER ==
[2020-01-27 09:14] VITALS: BP 140/86; PULSE 69; RESP 16; TEMP 98.1
--- NOTE | 2020-01-27 09:41 | P.PAINCN ---
History of Present Illness - Reason for Consult Consult date: 01/27/20 - History of Present Illness This is a 59-year-old patient referred by Dr. Shrestha with a chief complaint of chronic pain in her right abdomen. She does know that she has had pain in her abdomen throughout the entirety of her life. She is a multiple abdominal surgeries with Dr. Shrestha, some of which have helped with the pain but overall she is still having pain in her right abdomen. Pain is located in the mid to right aspect of her lower abdomen described as sharp and stabbing and chronic throughout the day. There is no radiation into the flank. The pain is constant throughout the day currently a 9 out of 10. She is scheduled to see Dr. Shrestha tomorrow. In terms of her history, she is a significant history of chronic pain overall including fibromyalgia and chronic neck pain with an ACDF at C5 to C7. As noted by other physician notes, she frequently goes to the ER for pain medication. She is scheduled to see Dr. Shrestha tomorrow to consider other surgical options if needed. In terms of medication she has tried Tylenol with no help. She mentions that she has taken Percocet and [place] in the past which helped significantly but has not been prescribed in some time. She is currently taking Xanax 0.5 once a day for anxiety. She is also currently on Cymbalta 30 mg once a day which she thinks helps significantly. She is also recently started on gabapentin 300 times a day which she says is helping a little bit Patient has been taking medications from primary care physician including [] with some relief. Patient denies adverse drug effects from medications. Pat ient also denies new-onset weakness, bowel/bladder incontinence, or any other signs or symptoms of cauda equina syndrome. There are no signs of acute intoxication, and no indications of medication diversion or overuse. In addition to above, 13-point review of systems is also negative for chest pain, shortness of breath, changes in vision, changes in hearing, new onset weakness, abdominal pain, diarrhea, extreme fatigue, malaise, fever, skin changes, homicidal or suicidal ideation, or bowel or bladder incontinence. Physical exam: Vital Signs: Reviewed in EMR GENERAL: Well appearing, in no acute distress PSYCH: Mood and affect is appropriate. Awake, alert, and oriented SKIN: Skin color, texture, turgor normal, no rashes or lesions HEENT: Normocephalic, atraumatic. EOM intact CV: No pedal edema RESP: Respirations are unlabored, no audible wheezing GI: Well-healed surgical scars. Tenderness to palpation over the right side of the abdomen. Imaging: Patient does mention that she had a CT of her abdomen recently. However I do not see that in her chart. Assessment: 1. Chronic Abdominal pain 2. Centralized pain syndrome Plan: 1. Explanation: Diagnoses, prognoses, and multiple treatment options including but not limited to physical therapy, interventional therapies, medication management and surgery were discussed with the patient and all questions were answered to the patient's satisfaction. 2. Investigations: I do not have access to her abdominal CT, however her CTs in the past have not showed any acute process. 3. Counseling: Counseled her on overall mental health and following up with her psychiatrist 4. Procedures: Do Not recommend any injections at this point. Consider celiac plexus block in the future, however given that her pain is likely centralized in nature I'm not sure this injection will help 5. Consultations: Advise her to follow up with her psychiatrist and consider increasing her Cymbalta 60 mg once a day. This will help with her overall psychiatric history and pain 6. Medications: I have increased her gabapentin to 600 mg 3 times a day. She'll up titrate this over a three-week span. I've also prescribed a TENS unit for her. He does mentions that she did take [place] 7.5 mg once a day in the past, and this did help very considerably. Given her multiple ED visits asking for further pain medication I would be wary of prescribing this patient opioids and were I to do so I would make it very clear that we would only be prescribing in limited amounts per day. Long-term opioid use and chronic abdominal patient's is generally not efficacious and Make the pain worse by increasing symptoms such as constipation 7. Disposition: 8 weeks. If our medications are not helping, can consider celiac plexus block. Past Medical History Additional Past Medical History / Comment(s): states hx of elevated heart rate, states "abdominal adhesions" History of Any Multi-Drug Resistant Organisms: None Reported Past Surgical History: Appendectomy, Bariatric Surgery, Bowel Resection, Cholecystectomy, Hysterectomy, Tonsillectomy Additional Past Surgical History / Comment(s): hx of gastric sleeve Past Anesthesia/Blood Transfusion Reactions: No Reported Reaction Smoking Status: Current every day smoker - Past Family History Father Family Medical History: Cancer Sister(s) Family Medical History: Cancer Mother Family Medical History: Cancer Additional Family Medical History / Comment(s): skin Medications and Allergies Home Medications Medication Instructions Recorded Confirmed Type Metoprolol Tartrate [Lopressor] 12.5 mg PO BID 11/21/19 01/27/20 History Acetaminophen Tab [Tylenol Tab] 1,000 mg PO Q6HR PRN #30 tablet 11/25/19 01/27/20 Rx Gabapentin [Neurontin] 300 mg PO TID #30 cap 01/15/20 01/27/20 Rx ALPRAZolam [Xanax] 0.5 mg PO DAILY 01/27/20 01/27/20 History Cyanocobalamin [Vitamin B-12] 500 mcg PO DAILY 01/27/20 01/27/20 History DULoxetine HCL [Cymbalta] 30 mg PO DAILY 01/27/20 01/27/20 History Etodolac [Lodine] 200 mg PO BID 01/27/20 01/27/20 History L.acidoph,Paracasei, B.lactis 1 each PO DAILY 01/27/20 01/27/20 History [Probiotic] Melatonin 10 mg PO HS 01/27/20 01/27/20 History Omeprazole [PriLOSEC] 20 mg PO HS 01/27/20 01/27/20 History Turmeric Root Extract [Turmeric] 500 mg PO BID 01/27/20 01/27/20 History Vitamin D3 10,000 units PO DAILY 01/27/20 01/27/20 History bisacodyL [Dulcolax] 5 mg PO DIRECTED PRN 01/27/20 01/27/20 History Allergies Allergy/AdvReac Type Severity Reaction Status Date / Time morphine AdvReac Nausea & Verified 01/27/20 08:52 Vomiting PQRS Measure Charge Sheet Measure #226: Tobacco Use: Screen & Cessation Intervention: Pt not a tobacco user Measure #111: Pneumonia Vaccination: Pneumococcal vaccine NOT administered or previously given Measure #47: Advance Care Plan: Advance care planning discussed & documented, pt chose/unable to give Measure #131: Pain Assessment & Follow-up: Pain positive & plan documented Measure #431: Unhealthy Alcohol Use Preventative Care & Scrn: Patient not identi fied as an unhealthy alcohol user Home Medications: Ambulatory Orders Metoprolol Tartrate [Lopressor] 12.5 mg PO BID 11/21/19 Acetaminophen Tab [Tylenol Tab] 1,000 mg PO Q6HR PRN #30 tablet 11/25/19 Gabapentin [Neurontin] 300 mg PO TID #30 cap 01/15/20 ALPRAZolam [Xanax] 0.5 mg PO DAILY 01/27/20 Cyanocobalamin [Vitamin B-12] 500 mcg PO DAILY 01/27/20 DULoxetine HCL [Cymbalta] 30 mg PO DAILY 01/27/20 Etodolac [Lodine] 200 mg PO BID 01/27/20 L.acidoph,Paracasei, B.lactis [Probiotic] 1 each PO DAILY 01/27/20 Melatonin 10 mg PO HS 01/27/20 Omeprazole [PriLOSEC] 20 mg PO HS 01/27/20 Turmeric Root Extract [Turmeric] 500 mg PO BID 01/27/20 Vitamin D3 10,000 units PO DAILY 01/27/20 bisacodyL [Dulcolax] 5 mg PO DIRECTED PRN 01/27/20
== END | disposition home or self-care (01) ==
LOC: PNWHC3 08:20
PROVIDERS: ATTEND Anesthesiology
DX: G89.0 Central pain syndrome (principal); R10.9 Unspecified abdominal pain; Z79.891 Long term (current) use of opiate analgesic; Z79.899 Other long term (current) drug therapy; Z88.5 Allergy status to narcotic agent
CPT/HCPCS: 99211

== ENCOUNTER → 2020-02-18 | Outpatient (CLI) | payer OTHER ==
[2020-02-20 08:51] LABS: Anabasine Urine <2.0 ng/mL (<2.0)
== END | disposition home or self-care (01) ==
LOC: LABWHC1 08:24
PROVIDERS: ATTEND Surgery Plastic and Reconstructive Surgery
DX: Z71.51 Drug abuse counseling and surveillance of drug abuser (principal)
CPT/HCPCS: 80323

== ENCOUNTER 2020-02-28 08:39 | Observation (INO) | payer OTHER ==
--- NOTE | 2020-02-28 06:21 | P.GSHP ---
History of Present Illness H&P Date: 02/28/20 CHIEF COMPLAINT: Paraesophageal hiatal hernia with gastroesophageal reflux disease. HISTORY OF PRESENT ILLNESS: The patient is a 59-year-old female who presents with paraesophageal hiatal hernia. She has completed an upper endoscopy. Now she presents for surgical intervention. PAST MEDICAL HISTORY: Please see list. PAST SURGICAL HISTORY: Please see list. MEDICATIONS: Please see list. ALLERGIES: Please see list. SOCIAL HISTORY: No illicit drug use FAMILY HISTORY: No reports of Crohn disease or ulcerative colitis. REVIEW OF ORGAN SYSTEMS: CONSTITUTIONAL: No reports of fevers or chills. GI: Denies any blood in stools or constipation. PHYSICAL EXAM: VITAL SIGNS: Stable GENERAL: Well-developed pleasant and in no acute distress. HEENT: No scleral icterus. Extraocular movements grossly intact. Moist buccal mucosa. NECK: Supple without lymphadenopathy. CHEST: Unlabored respirations. Equal bilateral excursions. CARDIOVASCULAR: Regular rate and rhythm. Distal 2+ pulses. ABDOMEN: Soft, nondistended. No peritoneal signs. MUSCULOSKELETAL: No clubbing, cyanosis, or edema. SKIN: Well-perfused. Good skin turgor. ASSESSMENT: 1. Diaphragmatic paraesophageal hiatal hernia with severe gastroesophageal reflux disease. PLAN: 1. Recommend proceeding with a robotic paraesophageal hiatal hernia with possible mesh. 2. Benefits and risks of surgical intervention was discussed including possibility of open technique. 3. Inpatient hospitalization recommended of 2 nights 4. DVT prophylaxis. 5. Antibiotic prophylaxis. 6. She has also completed a very low caloric high-protein diet to address underlying hepatomegaly. Past Medical History Past Medical History: GERD/Reflux Additional Past Medical History / Comment(s): states hx of elevated heart rate, states "abdominal adhesions" History of Any Multi-Drug Resistant Organisms: None Reported Past Surgical History: Appendectomy, Bariatric Surgery, Bowel Resection, Cholecystectomy, Hernia Repair, Hysterectomy, Tonsillectomy Additional Past Surgical History / Comment(s): incisional hernia, hx of gastric sleeve Past Anesthesia/Blood Transfusion Reactions: No Reported Reaction Smoking Status: Former smoker - Past Family History Father Family Medical History: Cancer Sister(s) Family Medical History: Cancer Mother Family Medical History: Cancer Additional Family Medical History / Comment(s): skin Medications and Allergies Home Medications Medication Instructions Recorded Confirmed Type Metoprolol Tartrate [Lopressor] 12.5 mg PO BID 11/21/19 02/27/20 History Acetaminophen Tab [Tylenol Tab] 1,000 mg PO Q6HR PRN #30 tablet 11/25/19 02/27/20 Rx ALPRAZolam [Xanax] 0.5 mg PO DAILY 01/27/20 02/27/20 History Cyanocobalamin [Vitamin B-12] 500 mcg PO DAILY 01/27/20 02/27/20 History DULoxetine HCL [Cymbalta] 30 mg PO DAILY 01/27/20 02/27/20 History Etodolac [Lodine] 200 mg PO BID 01/27/20 02/27/20 History L.acidoph,Paracasei, B.lactis 1 each PO DAILY 01/27/20 02/27/20 History [Probiotic] Melatonin 10 mg PO HS 01/27/20 02/27/20 History Omeprazole [PriLOSEC] 20 mg PO HS 01/27/20 02/27/20 History Turmeric Root Extract [Turmeric] 500 mg PO BID 01/27/20 02/27/20 History Vitamin D3 10,000 units PO DAILY 01/27/20 02/27/20 History bisacodyL [Dulcolax] 5 mg PO DIRECTED PRN 01/27/20 02/27/20 History Gabapentin 600 mg PO TID 02/27/20 02/27/20 History Allergies Allergy/AdvReac Type Severity Reaction Status Date / Time morphine AdvReac Nausea & Verified 02/27/20 09:04 Vomiting
[~2020-02-28 08:39] MED LIST changes: +CHLORHEXIDINE GLUCONATE 15 ML CUP MUCOUS MEM PRN; -DEXAMETHASONE SOD PHOSPHATE 10 MG/ML 1 ML VIAL IV ONE; +DEXAMETHASONE SOD PHOSPHATE 4 MG/ML 1 ML VIAL IV ONE; -HEPARIN SODIUM,PORCINE 5,000 UNIT/ML 1 ML VIAL SQ ONE; +HEPARIN SODIUM,PORCINE 5,000 UNIT/ML 1 ML VIAL SQ PRN; -KETOROLAC 15 MG/ML 1 ML VIAL IVP PRN; +LACTATED RINGERS 1,000 ML IV SCH; +MELOXICAM 7.5 MG TAB PO ONE; +MIDAZOLAM 2 MG/2 ML VIAL IV PRN; +PANTOPRAZOLE 40 MG/10 ML VIAL IV PRN; +SCOPOLAMINE 1.5MG/72HR PATCH TRANSDERM ONE; +SCOPOLAMINE 1.5MG/72HR PATCH TRANSDERM SCH; -SCOPOLAMINE 1.5MG/72HR PATCH TRANSDERM STA; +fentaNYL (PF) 50 MCG/ML 2 ML AMP IV PRN
[2020-02-28 09:55] LABS: Basophils # (A) 0.1 k/uL (0-0.2); Basophils % (A) 2 %; Eosinophils # (A) 0.3 k/uL (0-0.7); Eosinophils % (A) 6 %; HGB 13.8 gm/dL (11.4-16.0); Lymphocytes # (A) 1.8 k/uL (1.0-4.8); Lymphocytes % (A) 37 %; MCH 31.1 pg (25.0-35.0); MCHC 33.5 g/dL (31.0-37.0); MCV 92.7 fL (80.0-100.0); Mean Platelet Volume 7.1; Monocytes # (A) 0.4 k/uL (0-1.0); Monocytes % (A) 8 %; Neutrophils # (A) 2.2 k/uL (1.3-7.7); Neutrophils % (A) 44 %; Platelet Count 237 k/uL (150-450); RBC 4.42 m/uL (3.80-5.40); RDW 12.2 % (11.5-15.5); WBC 4.9 k/uL (3.8-10.6)
[2020-02-28] MEDS ORDERED: HEPARIN SODIUM,PORCINE 5,000 UNIT/ML 1 ML VIAL ONE (10:19)
[2020-02-28] MEDS ORDERED: HEPARIN SODIUM,PORCINE 5,000 UNIT/ML 1 ML VIAL SQ ONE (10:20)
[2020-02-28] MEDS ORDERED: PROPOFOL 10 MG/ML 20 ML VIAL IV ONE (10:28)
[2020-02-28] MEDS ORDERED: SUCCINYLCHOLINE CHLORIDE 100 MG/5 ML SYR IV ONE (10:28)
[2020-02-28] MEDS ORDERED: GLYCOPYRROLATE 0.2 MG/ML 2 ML VIAL ONE (10:28)
[2020-02-28] MEDS ORDERED: NEOSTIGMINE 1 MG/ML 10 ML VIAL ONE (10:28)
[2020-02-28] MEDS ORDERED: MIDAZOLAM 2 MG/2 ML VIAL ONE (10:28)
[2020-02-28] MEDS ORDERED: fentaNYL (PF) 50 MCG/ML 2 ML AMP ONE (10:28)
[2020-02-28] MEDS ORDERED: ROCURONIUM 10 MG/ML (10 ML VIAL) IV ONE (10:28)
[2020-02-28] MEDS ORDERED: ePHEDrine SULFATE/0.9% NACL/PF 50 MG/5 ML SYRINGE IV ONE (10:28)
[2020-02-28] MEDS ORDERED: LIDOCAINE 1% INJ 10MG/ML (20 ML MDV) ONE (10:28)
[2020-02-28] MEDS ORDERED: BUPIVACAINE (PF) 0.25% 30 ML VIAL SQ ONE ×2 (10:53→10:57)
[2020-02-28] MEDS ORDERED: LACTATED RINGERS 1,000 ML IV ONE (12:05)
[2020-02-28] MEDS ORDERED: NALOXONE 0.4 MG/ML 1 ML VIAL IV PRN (12:18)
[2020-02-28] MEDS ORDERED: diphenhydrAMINE 50 MG/ML 1 ML VIAL IVP PRN (12:18)
--- NOTE | 2020-02-28 12:24 | P.OP ---
Date of Procedure: 02/28/20 Description of Procedure: SURGEON: JOCE GARCIA MD PREOPERATIVE DIAGNOSES: 1. Gastroesophageal reflux disease, with erosive esophagitis 2. Paraesophageal hiatal hernia, midline, recurrent 3. Obesity due to excess calories, BMI of 34.8 4. History of sleeve gastrectomy 5. Epigastric abdominal pain. 6. Complications from sleeve gastrectomy 7. Dysphagia 8. Fibromyalgia 9. Hypertensive heart disease 10. Depressive disorder 11. Generalized anxiety disorder POSTOPERATIVE DIAGNOSES: 1. Gastroesophageal reflux disease, with erosive esophagitis 2. Paraesophageal hiatal hernia, midline, recurrent with incarceration, 5 x 3 cm, type III 3. Obesity due to excess calories, BMI of 34.8 4. History of sleeve gastrectomy 5. Epigastric abdominal pain. 6. Complications from sleeve gastrectomy 7. Dysphagia 8. Fibromyalgia 9. Hypertensive heart disease 10. Depressive disorder 11. Generalized anxiety disorder 12. Peritoneal adhesions, greater omentum to abdominal wall, left upper quadrant OPERATION: 1. Robotic-assisted da Jacqueline Xi laparoscopic reduction and repair of recurrent incarcerated paraesophageal hiatal hernia, 5 x 3 cm, with [place] Biopatch A 8 x 8 cm. 2. Robotic-assisted da Jacqueline Xi laparoscopic lysis of adhesions 3. Intraoperative esophagogastroscopy 4. Intraoperative 56 Fr Bougie ANESTHESIA: General with local anesthetic. ESTIMATED BLOOD LOSS: 5 mL Pathology: None COMPLICATIONS: None. FINDINGS: 1. Incarcerated upper pole of the stomach within the mediastinum with moderate dissection performed with incision of mediastinal hernia sac, type III paraesophageal hiatal hernia 2. [place] Biopatch A onlay mesh placed. 3. Identified previous hiatal hernia repair with retained suture consistent with recurrent incarcerated hiatal hernia 4. GE junction at 35 cm from the incisors 5. Intra-abdominal esophageal length over 3 cm obtained 6. No recurrent epigastric incisional hernia. 7. Left upper quadrant oversewn with 0 Vicryl. 8. Adhesions along the left upper quadrant lysed INDICATIONS: The patient is a 59-year-old female who presents with epigastric abdominal pain, dysphagia, history of sleeve gastrectomy, gastroesophageal reflux recalcitrant to medical therapy with a symptomatic diaphragmatic hiatal hernia. Preoperative workup including upper endoscopy demonstrated hiatal hernia with erosive esophagitis. Given the severity of her symptoms, she had elected for surgical intervention. Benefits and risks including bleeding, inf ection, recurrence, dysphagia, injury to the lung, need for further surgery was described at length. Informed consent was obtained. DESCRIPTION: The patient was brought into the operating room and placed in supine position. Preoperatively she had received heparin subcutaneously for DVT prophylaxis. After general induction, the abdomen was prepped and draped in standard sterile fashion. The patient had previously voided prior to coming to the operating room. Ioban draping was placed along the abdomen. A timeout protocol was confirmed with the surgical team, for which the patient's name, procedure to be performed including DVT prophylaxis with bilateral SCDs, and preoperative antibiotics were also confirmed. A robotic da Jacqueline Xi system was prepped and primed. At 13 cm from the xiphoid to just below the umbilicus, proposed port sites were marked with indelible marker along the left axillary line, left mid-clavicular line with each ports were marked 10 cm from each other. A 5 mm 0 degrees laparoscopic trocar entry was performed along the left upper quadrant. The abdomen was insufflated to 15 mmHg pressure was tolerated well. Diagnostic laparoscopy demonstrated no injury to bowel, viscera. Peritoneal adhesions of the greter omentum to the abdominal wall of the left abdomen was identified. No additional adhesions were found along the liver or the sleeve gastrectomy to the liver. No recurrent epigastric incisional ventral hernia was identified. Next, one 8 mm robotic port was placed along the right upper abdomen. An 8-mm port was were placed along the left lateral abdominal wall. The camera 8-mm port was maintained along the epigastrium. Another 12 mm port was placed along the left upper abdominal wall after exchanging the 5 mm port. Please note that t he ports were placed at least 20 cm away from the target anatomy. Care was taken to check that each robotic arm were safely away from collision with the bed or the patient. The patient was repositioned in reverse Trendelenburg position at 14-degrees after lowering the bed. The robot was docked above the right side of the patient. Using a grasper for arm 3, a grasper for arm 1, including vessel sealer for arm 2, the robotic system was docked and primed as described. Instruments were interchanged by the assistant to the director. I had sat at the console. Initial attention was brought to hiatus. Circumferentially the dissection at the hiatus was performed using vessel sealer including blunt dissection. Previous retained suture was found along the hiatus consistent with a prior repair. The hiatus hernia recurred anteriorly including a retained sac acting as a lead point for recurrence. To prevent any injury to the esophagus including proximal stomach, I performed an intraoperative upper endoscopy with the scope entering along the posterior oropharynx into the distal stomach and left in place as a bougie. The remnant gastrohepatic ligament was cleaved using a vessel sealer. Next, the phrenoesophageal ligament was mobilized and the distal esophagus was mobilized circumferentially. An incarcerated hernia sac was found into the mediastinum. As a result, deep dissection well into the mediastinum was needed to free the proximal sleeve gastrectomy including the mid to distal esophagus with retained gastric funduc consistent with a type III hiatal hernia. The left and right crura was identified. Significant mobilization of the distal to mid esophagus into the mediastinum was performed. Circumferentially, the hernia sac was incised and brought into the abdominal cavity. Care was taken to avoid any gastrotomy to the incarcerated upper pole of the stomach. The measured defect was measured with a ruler consistent with 5 cm axial length and 3 cm in width. After extensive dissection, the distal esophagus at least 3 cm was brought into the abdominal cavity. Once the hiatus and crura was dissected, 2-0 VLOC non-absorbable suture was placed as a running suture to re-approximate the diaphragmatic hiatus posteriorly. To buttress the repair, a [place] Biopatch A was prepared along the back table and cut in a half garcia-hole fashion as to reinforce the repair as an underlay. The mesh was resized posteriorly placed along the crural repair and tagged using non-absorbable 2-0 VLOC. I went to the head of the bed to perform intraoperative esophagogastroduodenoscopy. An Olympus gastroscope was passed through posterior oropharynx, where the squamocolumnar junction was confirmed at 35 cm from the incisors. The hiatus repair was confirmed from the incisors. The stomach was entered. A 56-Fr bougie was passed to address pre-existing esophageal stricture. The stomach had been desufflated. No evidence of leaks were found or mucosal defects of the esophagus or stomach. This concluded the endoscopic portion of the case. The robot was undocked from the patient. I re-scrubbed into the case. All instruments and pneumoperitoneum were evacuated from the abdominal cavity. The incisions were cleansed with dilute hydrogen peroxide with saline solution. Incisions were reapproximated using 4-0 Monocryl in an interrupted subcuticular fashion. The 12-mm port site fascial defect was less than 8 mm in size. Exofin was applied to the skin. Local anesthetic was infiltrated in all wounds for postop analgesia. Multiple intra-abdominal films were obtained. At the end of the procedure, needle, sponge, and instrument count was verified correct by the fire control technician g. The patient had tolerated the procedure well and was taken to the postanesthesia unit in stable condition. Intraoperative films were reviewed with the patient's family who were pleased with the level of care.
[2020-02-28] MEDS: HYDROmorphone 1 MG/ML 1 ML SYRINGE IVP ONE ×4 (12:28→12:53)
[2020-02-28] MEDS: KETOROLAC 15 MG/ML 1 ML VIAL IVP SCH ×2 (14:49→20:50)
[2020-02-28 14:57] VITALS: BMI 34.7
--- NOTE | 2020-02-28 15:49 | FL ---
Single contrast esophagram EXAMINATION TYPE: FL UGI w esophagus DATE OF EXAM: 02/28/2020 3:32 PM COMPARISON: NONE CLINICAL HISTORY: Status post Alban fundoplication The patient ingested contrast without difficulty or delay. Noted are changes of Alban fundoplicatio n. There is no evidence for leak or obstruction. Small amount of residual contrast within the distal esophagus. IMPRESSION: Post-surgical change of Alban fundoplication without evidence for leak or obstruction.
[2020-02-28] MEDS: 0.9% NACL WITH KCL 20 MEQ/L 1,000 ML IV SCH ×2 (17:37→20:52)
[2020-02-28] MEDS: ACETAMINOPHEN IV (For NPO) 1,000 MG in EMPTY BAG 1 BAG IVPB SCH (17:38)
[2020-02-28] MEDS: SIMETHICONE 40 MG/0.6 ML DROPS 2,000 MG/30 ML BOTTLE PO SCH (17:44)
[2020-02-28] MEDS: HYOSCYAMINE ORAL DROPS 1.875 MG/15 ML BOTTLE PO SCH (17:45)
[2020-02-28] MEDS: ONDANSETRON 4 MG/2 ML VIAL IVP SCH (17:47)
[2020-02-28 20:28] VITALS: RESP 18
[2020-02-28] MEDS: METOPROLOL TARTRATE 12.5 MG TAB PO SCH (22:17)
[2020-02-29] MEDS: SIMETHICONE 40 MG/0.6 ML DROPS 2,000 MG/30 ML BOTTLE PO SCH ×3 (00:31→12:13)
[2020-02-29] MEDS: HYOSCYAMINE ORAL DROPS 1.875 MG/15 ML BOTTLE PO SCH ×3 (00:31→12:13)
[2020-02-29] MEDS: ACETAMINOPHEN IV (For NPO) 1,000 MG in EMPTY BAG 1 BAG IVPB SCH ×3 (00:31→12:13)
[2020-02-29] MEDS: ONDANSETRON 4 MG/2 ML VIAL IVP SCH ×3 (00:31→12:14)
[2020-02-29] MEDS: KETOROLAC 15 MG/ML 1 ML VIAL IVP SCH ×3 (01:10→12:13)
[2020-02-29] MEDS: 0.9% NACL WITH KCL 20 MEQ/L 1,000 ML IV SCH (01:10)
[2020-02-29 07:54] LABS: Basophils % (A) 1 %; Eosinophils # (A) 0.3 k/uL (0-0.7); Eosinophils % (A) 4 %; HCT 34.4 % (34.0-46.0); HGB 11.5 gm/dL (11.4-16.0); Lymphocytes # (A) 1.5 k/uL (1.0-4.8); Lymphocytes % (A) 23 %; MCH 31.6 pg (25.0-35.0); MCHC 33.6 g/dL (31.0-37.0); Mean Platelet Volume 7.1; Monocytes # (A) 0.4 k/uL (0-1.0); Monocytes % (A) 6 %; Neutrophils # (A) 4.1 k/uL (1.3-7.7); Neutrophils % (A) 64 %; Platelet Count 205 k/uL (150-450); RBC 3.66 m/uL (3.80-5.40); RDW 12.2 % (11.5-15.5); WBC 6.4 k/uL (3.8-10.6)
[2020-02-29 08:09] LABS: African American GFR (CKD) >90 (>60 ml/min/1.73 sqM); Anion Gap 1 mmol/L; Blood Urea Nitrogen 11 mg/dL (7-17); Calcium 8.4 mg/dL (8.4-10.2); Carbon Dioxide 29 mmol/L (22-30); Chloride 110 mmol/L (98-107); Magnesium 1.9 mg/dL (1.6-2.3); Non-African American GFR(CKD) >90 (>60 ml/min/1.73 sqM); Phosphorus 3.8 mg/dL (2.5-4.5); Potassium 4.3 mmol/L (3.5-5.1); Sodium 140 mmol/L (137-145)
[2020-02-29] MEDS: METOPROLOL TARTRATE 12.5 MG TAB PO SCH (08:17)
[2020-02-29 08:23] VITALS: BP 104/64; TEMP 98.2
[2020-02-29] MEDS ORDERED: ENOXAPARIN 40 MG/0.4 ML SYRINGE SQ SCH (09:00)
[2020-02-29] MEDS ORDERED: PANTOPRAZOLE 40 MG/10 ML VIAL IV SCH (09:00)
--- NOTE | 2020-02-29 13:59 | P.DS ---
Providers Date of admission: 02/28/20 18:26 Expected date of discharge: 02/29/20 Attending physician: Angélica Shrestha Primary care physician: Amparo Martinez - Discharge Diagnosis(es) (1) Paraesophageal hernia with obstruction but no gangrene Status: Acute (2) Gastroesophageal reflux disease with esophagitis Status: Acute (3) History of sleeve gastrectomy Status: Acute Hospital Course: POSTOPERATIVE DIAGNOSES: 1. Gastroesophageal reflux disease, with erosive esophagitis 2. Paraesophageal hiatal hernia, midline, recurrent with incarceration, 5 x 3 cm, type III 3. Obesity due to excess calories, BMI of 34.8 4. History of sleeve gastrectomy 5. Epigastric abdominal pain. 6. Complications from sleeve gastrectomy 7. Dysphagia 8. Fibromyalgia 9. Hypertensive heart disease 10. Depressive disorder 11. Generalized anxiety disorder 12. Peritoneal adhesions, greater omentum to abdominal wall, left upper quadrant INDICATIONS: The patient is a 59-year-old female who presented with epigastric abdominal pain, dysphagia, history of sleeve gastrectomy, gastroesophageal reflux recalcitrant to medical therapy with a symptomatic diaphragmatic hiatal hernia. She is status post hiatal hernia repair including lysis of adhesions. She has done well. Her reflux disease has completely resolved. She is tolerating liquids without reflux. PHYSICAL EXAM: VITALS: Reviewed CONSTITUTIONAL: Well developed and in no acute distress. EYES: Conjuctivae without sclera icterus. Pupils are equally round and reactive to light. Extraocular movements grossly intact. HEAD, EARS, NOSE, THROAT: Moist buccal mucosa. Head is atraumatic, normocephalic. Hears conversational speech. No nasal drainage. NECK: Supple. No JV distention. No thyroidomegaly. RESPIRATORY: Non-labored respirations and equal bilateral excursions. No gross wheezes. CARDIOVASCULAR: Regular rate and rhythm. Extremities without moderate edema. Palpable 2+ radial pulses. ABDOMEN: Soft. Non-tender. Nondistended. MUSCULOSKELETAL: Nail and fingers with good capillary refill. SKIN: Warm and well perfused with good skin turgor. NEUROLOGIC: Cranial nerves II through XII grossly intact. Sensation upper and extremities intact. No focal or lateralizing signs. PSYCH: Appropriate affect. Alert and oriented to person, place and time. Displays appropriate insight. CLINCAL LABS: Reviewed IMAGING: Independently reviewed. Esophagram revealed no signs of obstruction or leak. ASSESSMENT: 1. Hiatal hernia PLAN: 1. Discharge instructions reviewed. 2. Patient is stable for discharge. Vital Signs Temp 98.2 F 02/29/20 08:23 Pulse 70 02/29/20 12:24 Resp 18 02/29/20 08:23 BP 104/64 02/29/20 08:23 Pulse Ox 93 L 02/29/20 12:24 Intake & Output 02/28/20 02/29/20 02/29/20 18:59 06:59 18:59 Intake Total 1510 1060 580 Output Total 5 550 1100 Balance 1505 510 -520 Weight 94.8 kg Intake: IV 1450 Intake, IV Titration 100 Amount ACETAMINOPHEN IV (For NPO 100 ) 1,000 mg In Empty Bag 1 bag @ 400 mls/hr IVPB Q6HR [facility] Rx#:[id number] Oral 60 1060 480 Output: Urine 550 1100 Estimated Blood Loss 5 Other: # Voids 1 3 Laboratory Last Values WBC 6.4 k/uL (3.8-10.6) 02/29/20 07:40 RBC 3.66 m/uL (3.80-5.40) L 02/29/20 07:40 Hgb 11.5 gm/dL (11.4-16.0) 02/29/20 07:40 Hct 34.4 % (34.0-46.0) 02/29/20 07:40 MCV 94.0 fL (80.0-100.0) 02/29/20 07:40 MCH 31.6 pg (25.0-35.0) 02/29/20 07:40 MCHC 33.6 g/dL (31.0-37.0) 02/29/20 07:40 RDW 12.2 % (11.5-15.5) 02/29/20 07:40 Plt Count 205 k/uL (150-450) 02/29/20 07:40 MPV 7.1 02/29/20 07:40 Neutrophils % 64 % 02/29/20 07:40 Lymphocytes % 23 % 02/29/20 07:40 Monocytes % 6 % 02/29/20 07:40 Eosinophils % 4 % 02/29/20 07:40 Basophils % 1 % 02/29/20 07:40 Neutrophils # 4.1 k/uL (1.3-7.7) 02/29/20 07:40 Lymphocytes # 1.5 k/uL (1.0-4.8) 02/29/20 07:40 Monocytes # 0.4 k/uL (0-1.0) 02/29/20 07:40 Eosinophils # 0.3 k/uL (0-0.7) 02/29/20 07:40 Basophils # 0.0 k/uL (0-0.2) 02/29/20 07:40 Sodium 140 mmol/L (137-145) 02/29/20 07:40 Potassium 4.3 mmol/L (3.5-5.1) 02/29/20 07:40 Chloride 110 mmol/L (98-107) H 02/29/20 07:40 Carbon Dioxide 29 mmol/L (22-30) 02/29/20 07:40 Anion Gap 1 mmol/L 02/29/20 07:40 BUN 11 mg/dL (7-17) 02/29/20 07:40 Creatinine 0.74 mg/dL (0.52-1.04) 02/29/20 07:40 Est GFR (CKD-EPI)AfAm >90 (>60 ml/min/1.73 sqM) 02/29/20 07:40 Est GFR (CKD-EPI)NonAf >90 (>60 ml/min/1.73 sqM) 02/29/20 07:40 Calcium 8.4 mg/dL (8.4-10.2) 02/29/20 07:40 Phosphorus 3.8 mg/dL (2.5-4.5) 02/29/20 07:40 Magnesium 1.9 mg/dL (1.6-2.3) 02/29/20 07:40 Procedures: OPERATION: 1. Robotic-assisted da Jacqueline Xi laparoscopic reduction and repair of recurrent incarcerated paraesophageal hiatal hernia, 5 x 3 cm, with [place] Biopatch A 8 x 8 cm. 2. Robotic-assisted da Jacqueline Xi laparoscopic lysis of adhesions 3. Intraoperative esophagogastroscopy 4. Intraoperative 56 Fr Bougie ANESTHESIA: General with local anesthetic. ESTIMATED BLOOD LOSS: 5 mL Pathology: None COMPLICATIONS: None. FINDINGS: 1. Incarcerated upper pole of the stomach within the mediastinum with moderate dissection performed with incision of mediastinal hernia sac, type III paraesophageal hiatal hernia 2. [place] Biopatch A onlay mesh placed. 3. Identified previous hiatal hernia repair with retained suture consistent with recurrent incarcerated hiatal hernia 4. GE junction at 35 cm from the incisors 5. Intra-abdominal esophageal length over 3 cm obtained 6. No recurrent epigastric incisional hernia. 7. Left upper quadrant oversewn with 0 Vicryl. 8. Adhesions along the left upper quadrant lysed Patient Condition at Discharge: Good Plan - Discharge Summary Discharge Rx Participant: Yes New Discharge Prescriptions: New Hyoscyamine Oral Drops [Levsin Drops] 0.125 mg PO Q6HR ml Simethicone 40 mg/0.6 ml Drops [Mylicon Drops] 80 mg PO Q6HR ml Scopolamine 1.5MG/72Hr Patch [TransDerm Scop] 1 patch TRANSDERM Q72H patch bisacodyL [Dulcolax] 5 mg PO DAILY PRN #10 tablet.dr PRN Reason: Constipation Simethicone 40 mg/0.6 ml Drops [Mylicon Drops] 80 mg PO PCHS PRN #30 ml PRN Reason: Gas Ondansetron Odt [Zofran Odt] 4 mg PO Q8HR PRN #9 tab PRN Reason: Nausea Acetaminophen Oral Susp [Tylenol Oral Susp] 1,000 mg PO Q4-6H PRN #400 ml PRN Reason: Pain Continue Metoprolol Tartrate [Lopressor] 12.5 mg PO BID Acetaminophen Tab [Tylenol] 1,000 mg PO Q6HR PRN #30 tablet PRN Reason: Pain bisacodyL [Dulcolax] 5 mg PO DIRECTED PRN PRN Reason: Constipation Vitamin D3 10,000 units PO DAILY Turmeric Root Extract [Turmeric] 500 mg PO BID Melatonin 10 mg PO HS L.acidoph,Paracasei, B.lactis [Probiotic] 1 each PO DAILY Etodolac [Lodine] 200 mg PO BID DULoxetine HCL [Cymbalta] 30 mg PO DAILY Cyanocobalamin [Vitamin B-12] 500 mcg PO DAILY ALPRAZolam [Xanax] 0.5 mg PO DAILY Gabapentin 600 mg PO TID Discontinued Omeprazole [PriLOSEC] 20 mg PO HS Discharge Medication List Metoprolol Tartrate [Lopressor] 12.5 mg PO BID 11/21/19 [History] Acetaminophen Tab [Tylenol] 1,000 mg PO Q6HR PRN #30 tablet 11/25/19 [Rx] ALPRAZolam [Xanax] 0.5 mg PO DAILY 01/27/20 [History] Cyanocobalamin [Vitamin B-12] 500 mcg PO DAILY 01/27/20 [History] DULoxetine HCL [Cymbalta] 30 mg PO DAILY 01/27/20 [History] Etodolac [Lodine] 200 mg PO BID 01/27/20 [History] L.acidoph,Paracasei, B.lactis [Probiotic] 1 each PO DAILY 01/27/20 [History] Melatonin 10 mg PO HS 01/27/20 [History] Turmeric Root Extract [Turmeric] 500 mg PO BID 01/27/20 [History] Vitamin D3 10,000 units PO DAILY 01/27/20 [History] bisacodyL [Dulcolax] 5 mg PO DIRECTED PRN 01/27/20 [History] Gabapentin 600 mg PO TID 02/27/20 [History] Acetaminophen Oral Susp [Tylenol Oral Susp] 1,000 mg PO Q4-6H PRN #400 ml 02/29/20 [Rx] Hyoscyamine Oral Drops [Levsin Drops] 0.125 mg PO Q6HR ml 02/29/20 [Rx] Ondansetron Odt [Zofran Odt] 4 mg PO Q8HR PRN #9 tab 02/29/20 [Rx] Scopolamine 1.5MG/72Hr Patch [TransDerm Scop] 1 patch TRANSDERM Q72H patch 02/29/20 [Rx] Simethicone 40 mg/0.6 ml Drops [Mylicon Drops] 80 mg PO PCHS PRN #30 ml 02/29/20 [Rx] Simethicone 40 mg/0.6 ml Drops [Mylicon Drops] 80 mg PO Q6HR ml 02/29/20 [Rx] bisacodyL [Dulcolax] 5 mg PO DAILY PRN #10 tablet. 02/29/20 [Rx] Follow up Appointment(s)/Referral(s): Angélica Shrestha MD [STAFF PHYSICIAN] - 03/03/20 (Please call to confirm appointment) Patient Instructions/Handouts: *Surgery [facility] - Scopalamine Patch Instructions, Hiatal Hernia (DC) Activity/Diet/Wound Care/Special Instructions: Liquid diet only for 2 weeks until March 13. No lifting over 4 pounds in 4 weeks, March 30July shower No soaking in bath tubs for 2 weeks, until March 13. Please notify your surgeon if you develop nausea and vomiting including new onset of abdominal pain. Please ambulate at all times. Use Tylenol and ibuprofen or Aleve scheduled for the next 24-48 hours for best pain relief. Use ice along incisions for the today to prevent swelling. Please open, cut, crush pills larger than the size of a tic tack No carbonated beverages. No straws. Do not remove scopolamine patch for 3 days, if present Discharge Disposition: HOME SELF-CARE
[2020-02-29 14:25] VITALS: PULSE 72
[2020-03-01] MEDS ORDERED: bisacodyL 5 MG TABLET.DR PO PRN (08:00)
== END 2020-02-29 14:59 | disposition home or self-care (01) ==
LOC: OR 08:39 → 6PED 12:07 → OR 18:32
PROVIDERS: ADMIT Surgery Plastic and Reconstructive Surgery; ATTEND Surgery Plastic and Reconstructive Surgery
DX: K22.10 Ulcer of esophagus without bleeding (principal); K44.0 Diaphragmatic hernia with obstruction, without gangrene; K21.00 Gastro-esophageal reflux disease with esophagitis, without bleeding; Z90.49 Acquired absence of other specified parts of digestive tract; Z98.84 Bariatric surgery status; Z90.710 Acquired absence of both cervix and uterus; Z87.891 Personal history of nicotine dependence; Z80.8 Family history of malignant neoplasm of other organs or systems; Z79.899 Other long term (current) drug therapy; Z88.5 Allergy status to narcotic agent; E66.09 Other obesity due to excess calories; Z68.34 Body mass index [BMI] 34.0-34.9, adult; M79.7 Fibromyalgia; I11.9 Hypertensive heart disease without heart failure; F32.9 Major depressive disorder, single episode, unspecified; F41.1 Generalized anxiety disorder; K66.0 Peritoneal adhesions (postprocedural) (postinfection); K22.2 Esophageal obstruction
CPT/HCPCS: 43235; 43282; 49329; S2900; 74240; 80051; 82310; 82565; 83735; 84100; 84520; 85025

== ENCOUNTER → 2020-03-25 | Outpatient (CLI) | payer OTHER ==
[2020-03-25 09:56] VITALS: BP 134/83; PULSE 70; RESP 18; TEMP 98.1
--- NOTE | 2020-03-25 10:29 | P.PN ---
Subjective Progress Note Date: 03/25/20 This is a follow-up visit for this 60 years old female with a chronic history of severe abdominal pain, patient had multiple surgical interventions on her abdomen expected laparotomy and bowel resection, recently she hasn't returned the robotic-assisted pararesophegeal hiatal hernia repair, last visit patient was given a prescription for TENS unit , and she reported that she was not able to do it she called several pharmacy and they told her that they don't have it, patient was taking the Neurontin 300 mg 3 times a day which was increased to 600 mg 3 times a day patient stopped using it because she has side effects from the Neurontin, she had generalized pain and she had a flareup of arthritis after she was taking the Neurontin, patient continued to have severe constipation and she was diagnosed with idiopathic chronic constipation, and she reported that her pain is localized above the umbilical area in the midline Objective - Vital Signs Vital signs: Vital Signs Temp 98.1 F 03/25/20 09:49 Pulse 70 03/25/20 09:49 Resp 18 03/25/20 09:49 BP 134/83 03/25/20 09:49 Pulse Ox 96 03/25/20 09:49 - Exam Physical Examinations : -Constitutiona : Cooperative , not in acute distress . -HEENT : nech : supple , no Lymphadenopathy , normal thyroid size . : eyes : no ptosis , no icterus, no photophobia . Abdomen ; tendernes over the medial aspect of the abdomen above the umbilicus No erythema , no organomegaly , incisions healing appropriately no discharge - neurologic : Cranial nerve II to XII intact , no focal neurological deffecit . -psychatric : alert , oriented X 3 , appropriate affect , intact judgment and insight . -Lymphatic : no Lymphadenopathy . - musculoskeltal : Lumber spine moter stegnth lower extremities ,thigh and legs 5/5 Right side , 5/5 Left side Assessment and Plan Plan: Assessment and plan=1-chronic abdominal pain 2- idiopathic chronic constipation. Patient had side effects from Neurontin,(denies pain and flareup arthritis ), vision could benefit from Lyrica 50 mg twice a day she could benefit from TENS unit she already has prescription she will be referred for physical therapy. Patient could benefit from practice she is block in the future if she is agreeable to it. He'll follow up in the pain clinic in 6-8 weeks. - PQRS measures = - Patient's medications are documented in the chart. -Tobacco use is negative and counseling.Given. -Patient's has not received pneumococcal vaccine. -Advanced care planning discussed, patient not eligible. -Opiate contract signed. -Pain positive and follow-up visit/procedure is scheduled. -Patient's blood pressure measured [ 174/83 ] , and documented in the record ,and patient will follow up with the primary care. -Patient's weight was measured and body mass index [33.3 ] above the normal limits and counseling was done. and patient instructed to follow-up with the primary care physician. -Patient was not identified as an unhealthy alcohol user Time with Patient: Less than 30
== END | disposition home or self-care (01) ==
LOC: PNWHC3 09:44
PROVIDERS: ATTEND Specialist
DX: K59.09 Other constipation (principal); G89.29 Other chronic pain; Z79.899 Other long term (current) drug therapy
CPT/HCPCS: 99211